=== PATIENT | male | born 1980 | race Caucasian/White ===

== ENCOUNTER 2020-11-18 04:04 | Inpatient (IN) | payer MEDICAID, OTHER ==
[~2020-11-18] VITALS: Ht 175.3 cm; Wt 96.2 kg
[2020-11-18] MEDS ORDERED: SODIUM CHLORIDE 0.9% 1,000 ML IV ONE (04:30)
[2020-11-18] MEDS ORDERED: VANCOMYCIN HCL 1 GM/D5% WATER 200 ML IV ONE (04:30)
[2020-11-18] MEDS ORDERED: OMEP20 PO (04:44)
[2020-11-18] MEDS ORDERED: MIRT30 PO (04:44)
[2020-11-18] MEDS ORDERED: PRAZ1 PO (04:44)
[2020-11-18] MEDS ORDERED: LORA10TA7 PO (04:44)
[2020-11-18] MEDS ORDERED: INSLAN SQ (04:44)
[2020-11-18] MEDS ORDERED: INSREG SQ (04:44)
[2020-11-18] MEDS ORDERED: ACET-66 PO (04:44)
[2020-11-18] MEDS ORDERED: LISI-893 PO (04:44)
[2020-11-18 04:55] LABS: BASOPHILS % (AUTO) 0.5 % (0.0-2.0); EOSINOPHILS % (AUTO) 2.2 % (1.0-6.0); HEMATOCRIT 34.6 % (41-53); HEMOGLOBIN 11.8 g/dL (13.5-17.5); LYMPHOCYTES # (AUTO) 2.2 K/uL (1.0-4.8); LYMPHOCYTES % (AUTO) 35.4 % (22.0-44.0); MEAN CORPUSCULAR HEMOGLOBIN 30.2 pg (26.0-34.0); MEAN CORPUSCULAR HGB CONC 34.1 G/dL (31.0-37.0); MEAN CORPUSCULAR VOLUME 89 fL (80-100); MONOCYTES # (AUTO) 0.5 K/uL (0.1-1.0); MONOCYTES % (AUTO) 8.7 % (2.0-9.0); NEUTROPHILS # (AUTO) 3.3 K/uL (1.8-7.7); NEUTROPHILS % (AUTO) 53.2 % (40.0-70.0); PLATELET COUNT (AUTO) 182 K/uL (150-450); RED BLOOD CELL COUNT(AUTO) 3.91 MIL/uL (4.50-5.90); RED CELL DISTRIBUTION WIDTH 12.7 % (11.5-14.5)
[2020-11-18 04:59] LABS: ANION GAP 5 mmol/L (8-16); CALCIUM, TOTAL 8.4 mg/dL (8.8-10.5); CARBON DIOXIDE 31 mmol/L (22-29); CHLORIDE 109 mmol/L (98-107); CREATININE 1.29 mg/dL (0.60-1.30); GLOMERULAR FILTR. RATE CALC > 60 mL/min (>60); GLUCOSE,RANDOM 81 mg/dL (70-110); POTASSIUM 4.6 mmol/L (3.5-5.1); SODIUM SERUM 145 mmol/L (136-145); UREA NITROGEN, BLOOD 20 mg/dL (7-18)
[2020-11-18 05:05] LABS: ALANINE AMINOTRANSFERASE 143 U/L (12-78); ALBUMIN 2.9 g/dL (3.4-5.0); ALKALINE PHOSPHATASE 88 U/L (46-116); ASPARTATE AMINOTRANSFERASE 390 U/L (15-37); BILIRUBIN,TOTAL 0.2 mg/dL (0.1-1.0); TOTAL PROTEIN, SERUM 5.8 g/dL (6.4-8.2)
[2020-11-18] MEDS ORDERED: DEXTROSE 50%-WATER 25 GM/50 ML SYRINGE IVP PRN (05:45)
[2020-11-18] MEDS ORDERED: ONDANSETRON HCL 4 MG/2 ML VIAL IVP PRN (05:45)
[2020-11-18] MEDS ORDERED: PIPERACILLIN/TAZO 3.375 GM/D5W 50 ML IV SCH (06:00)
[2020-11-18 06:47] VITALS: BP 142/75
[2020-11-18 08:20] VITALS: BP 155/82
[2020-11-18] MEDS: HEPARIN SODIUM,PORCINE 5,000 UNITS/ML VIAL SQ SCH ×3 (08:55→23:47)
[2020-11-18] MEDS: PIPERACILLIN/TAZO 3.375 GM/D5W 50 ML IV SCH ×3 (08:56→19:38)
[2020-11-18] MEDS: ACETAMINOPHEN 325 MG TABLET PO PRN (09:00)
[2020-11-18] MEDS ORDERED: VANCOMYCIN HCL 750 MG in DEXTROSE 5%-WATER 250 ML IV ONE (10:00)
[2020-11-18] MEDS: INSULIN LISPRO 100 UNITS/ML SQ PRN (11:52)
[2020-11-18 12:01] LABS: GLUCOMETER DEV NAME(LOC) 6N.1; GLUCOSE,POINT OF CARE 58 MG/DL (70-110)
[2020-11-18] MEDS: HYDROCODONE/ACETAMINOPHEN 5-325 MG TABLET PO PRN ×3 (13:22→22:48)
[2020-11-18 13:53] LABS: GLUCOMETER DEV NAME(LOC) 6S.1; GLUCOSE,POINT OF CARE 189 MG/DL (70-110)
[2020-11-18 16:00] VITALS: BP 143/84
[2020-11-18 19:35] VITALS: BP 137/76
[2020-11-18] MEDS: SODIUM CHLORIDE 0.9% 1,000 ML IV SCH (19:41)
[2020-11-18 19:57] LABS: GLUCOMETER DEV NAME(LOC) 6N.1; GLUCOSE,POINT OF CARE 94 MG/DL (70-110)
[2020-11-18] MEDS: VANCOMYCIN HCL 1.25 GM in DEXTROSE 5%-WATER 250 ML IV SCH (20:41)
[2020-11-18] MEDS: INSULIN GLARGINE,HUM.REC.ANLOG 100 UNITS/ML SQ SCH (20:58)
[2020-11-18] MEDS ORDERED: INSULIN GLARGINE,HUM.REC.ANLOG 100 UNITS/ML SQ SCH (21:00)
[2020-11-18 21:10] LABS: GLUCOMETER DEV NAME(LOC) 6S.1; GLUCOSE,POINT OF CARE 270 MG/DL (70-110)
[2020-11-19] MEDS: PIPERACILLIN/TAZO 3.375 GM/D5W 50 ML IV SCH ×4 (01:04→18:28)
[2020-11-19] MEDS: HYDROCODONE/ACETAMINOPHEN 5-325 MG TABLET PO PRN ×4 (04:39→20:18)
[2020-11-19 05:36] VITALS: BP 135/76
[2020-11-19 05:51] LABS: CALCIUM, TOTAL 8.2 mg/dL (8.8-10.5); CREATININE 1.34 mg/dL (0.60-1.30); POTASSIUM 4.1 mmol/L (3.5-5.1)
[2020-11-19] MEDS ORDERED: PNEUMOCOCCAL VACCINE POLYVALENT 0.5 ML VIAL [PPSV23] IM. ONE (06:15)
[2020-11-19 07:36] VITALS: BP 139/79
[2020-11-19] MEDS: HEPARIN SODIUM,PORCINE 5,000 UNITS/ML VIAL SQ SCH ×3 (08:00→23:08)
[2020-11-19 08:11] LABS: GLUCOMETER DEV NAME(LOC) 6S.1; GLUCOSE,POINT OF CARE 140 MG/DL (70-110)
[2020-11-19] MEDS: VANCOMYCIN HCL 1.25 GM in DEXTROSE 5%-WATER 250 ML IV SCH ×2 (08:28→20:10)
[2020-11-19] MEDS: SODIUM CHLORIDE 0.9% 1,000 ML IV SCH ×2 (11:47→11:51)
[2020-11-19 12:39] LABS: GLUCOMETER DEV NAME(LOC) 6S.1; GLUCOSE,POINT OF CARE 133 MG/DL (70-110)
[2020-11-19] MEDS: ACETAMINOPHEN 325 MG TABLET PO PRN (13:04)
[2020-11-19] MEDS: INSULIN LISPRO 100 UNITS/ML SQ PRN (17:31)
[2020-11-19 19:55] LABS: GLUCOMETER DEV NAME(LOC) 6N.1; GLUCOSE,POINT OF CARE 186 MG/DL (70-110)
[2020-11-19] MEDS: INSULIN GLARGINE,HUM.REC.ANLOG 100 UNITS/ML SQ SCH (20:16)
[2020-11-19 20:18] VITALS: BP 143/80
[2020-11-19 23:37] LABS: GLUCOMETER DEV NAME(LOC) 6N.1; GLUCOSE,POINT OF CARE 218 MG/DL (70-110)
[2020-11-20] MEDS: PIPERACILLIN/TAZO 3.375 GM/D5W 50 ML IV SCH ×3 (00:07→13:06)
[2020-11-20] MEDS: HYDROCODONE/ACETAMINOPHEN 5-325 MG TABLET PO PRN ×3 (00:07→13:21)
[2020-11-20 06:13] LABS: ALBUMIN 2.4 g/dL (3.4-5.0); BILIRUBIN,TOTAL 0.2 mg/dL (0.1-1.0); CALCIUM, TOTAL 8.1 mg/dL (8.8-10.5); CREATININE 1.36 mg/dL (0.60-1.30); POTASSIUM 4.5 mmol/L (3.5-5.1); TOTAL PROTEIN, SERUM 5.2 g/dL (6.4-8.2)
[2020-11-20 07:01] LABS: GLUCOMETER DEV NAME(LOC) 6S.1; GLUCOSE,POINT OF CARE 135 MG/DL (70-110)
[2020-11-20] MEDS: HEPARIN SODIUM,PORCINE 5,000 UNITS/ML VIAL SQ SCH (08:00)
[2020-11-20 08:24] VITALS: BP 173/85
[2020-11-20] MEDS: VANCOMYCIN HCL 1.25 GM in DEXTROSE 5%-WATER 250 ML IV SCH (08:51)
[2020-11-20] MEDS: SODIUM CHLORIDE 0.9% 1,000 ML IV SCH ×2 (13:06)
[2020-11-20 13:45] LABS: GLUCOMETER DEV NAME(LOC) 6S.1; GLUCOSE,POINT OF CARE 58 MG/DL (70-110)
[2020-11-20] MEDS ORDERED: LEVO750T68 PO (14:23)
[2020-11-20] MEDS ORDERED: CLIN300C10 PO (14:24)
[2020-11-20] MEDS ORDERED: AMLO-258 PO (14:25)
== END 2020-11-20 15:30 | DRG 728 ==
LOC: EMS 04:04 → 6S 06:30
PROVIDERS: ADMIT Internal Medicine; ATTEND Internal Medicine
DX: N49.2 Inflammatory disorders of scrotum (principal); I10 Essential (primary) hypertension; E10.9 Type 1 diabetes mellitus without complications; D64.9 Anemia, unspecified; Z79.899 Other long term (current) drug therapy; Z83.3 Family history of diabetes mellitus; R74.01 Elevation of levels of liver transaminase levels
CPT/HCPCS: 80048; 80053; 80202; 82962; 85025; 87040; 99285; J1644; J1815; J2543; J3370; J7030; J7060